=== PATIENT | female | born 1955 | race Caucasian/White ===

== ENCOUNTER 2020-07-05 09:32 | Emergency (ER) | payer OTHER ==
[2020-07-05 09:49] VITALS: BMI 25.3
--- NOTE | 2020-07-05 11:16 | PDOC ---
History of Present Illness - General Chief Complaint: Pain Stated Complaint: ABD PAIN Time Seen by Provider: 07/05/20 10:36 - History of Present Illness Initial Comments: 07/05/20 11:09 64yo F with PMH of HTN and hysterectomy (10/2019 with revision in 02/2020) presents with worsening generalized burning abdominal pain since February. Not relieved by tylenol, ibuprofen, or anti-acids. Relieved by food. Associated with constipation. Reports unintentional 20lb weight loss since October. Las BM yesterday and is passing gas normally. No n/v or diarrhea. No urinary or vaginal symptoms, no fever. PMH/PSH: as above Meds: HTN meds (unsure name) Allergies: none GENERAL/CONSTITUTIONAL: No fever or chills. No weakness. HEAD, EYES, EARS, NOSE AND THROAT: No change in vision. No ear pain or discharge. No sore throat. CARDIOVASCULAR: No chest pain or shortness of breath RESPIRATORY: No cough, wheezing, or hemoptysis. GASTROINTESTINAL: abdominal pain and constipation GENITOURINARY: No dysuria, frequency, or change in urination. MUSCULOSKELETAL: No joint or muscle swelling or pain. No neck or back pain. SKIN: No rash NEUROLOGIC: No headache, vertigo, loss of consciousness, or change in strength/sensation. ENDOCRINE: No increased thirst. No abnormal weight change HEMATOLOGIC/LYMPHATIC: No anemia, easy bleeding, or history of blood clots. ALLERGIC/IMMUNOLOGIC: No hives or skin allergy. PE GENERAL: Awake, alert, and fully oriented, in no acute distress HEAD: No signs of trauma, normocephalic, atraumatic EYES: PERRLA, EOMI, sclera anicteric, conjunctiva clear ENT: Auricles normal inspection, hearing grossly normal, nares patent, oropharynx clear without exudates. Moist mucosa NECK: Normal ROM, supple, no lymphadenopathy, JVD, or masses LUNGS: No distress, speaks full sentences, clear to auscultation bilaterally HEART: Regular rate and rhythm, normal S1 and S2, no murmurs, rubs or gallops, p eripheral pulses normal and equal bilaterally. ABDOMEN: Soft, diffusely tender without guarding or rebound. Negative Mijares's sign. EXTREMITIES : Normal inspection, Normal range of motion, no edema. No clubbing or cyanosis. NEUROLOGICAL: Normal speech, normal gait, no focal sensorimotor deficits SKIN: Warm, Dry, normal turgor, no rashes or lesions noted Vital Signs Temp Pulse Resp BP Pulse Ox 103 H 20 181/112 H 99 07/05/20 09:45 07/05/20 09:45 07/05/20 09:45 07/05/20 09:45 MDM: 64yo F with PMH of HTN and hysterectomy (10/2019 with revision in 02/2020) presents with worsening generalized burning abdominal pain since February. Differential includes post-op complication/inflammation, diverticulitis, pancreatitis. -CBC, CMP, lipase -Pepcid, maalox 07/05/20 16:14 Labs without evidence of acute pathology. Patient reports some improvement with pepcid and maalox. She is soft and mildly tendern on repeat abdominal exam. Low suspicion for emergent pathology, so will not pursue CT A/P in the ED. DC home with tagamet and carafate, as well as PCP/GI f/u. Past History - Medical History Allergies/Adverse Reactions: Allergies Allergy/AdvReac Type Severity Reaction Status Date / Time No Known Drug Allergies Allergy Verified 07/05/20 09:52 Home Medications: Ambulatory Orders Amlodipine Besylate 5 mg PO DAILY 07/05/20 Cimetidine [Tagamet Hb] 200 mg PO HS 14 Days #14 tablet 07/05/20 Losartan 50Mg/Hctz 12.5MG [Hyzaar -] 1 tab PO DAILY 07/05/20 Sucralfate [Carafate -] 1 gm PO BID #28 tablet 07/05/20 COPD: No HTN: Yes Other medical history: spinal stenosis - Surgical History Appendectomy: Yes - Reproductive History Is Patient Now?: No - Psycho-Social/Smoking History Smoking History: Never smoked - Substance Abuse Hx (Audit-C & DAST Scrn) How often the patient has a drink containing alcohol: Never Score: In Men: 4 or > Positive; In Women: 3 or > Positive: 0 Screen Result (Pos requires Nsg. Audit-10AR): Negative In the last yr the pt used illegal drug/Rx for NonMed reason: No Score: Yes response is considered Positive: 0 Screen Result (Positive result requires Nsg. DAST-10): Negative *Physical Exam - Vital Signs Last Vital Signs Temp Pulse Resp BP Pulse Ox 103 H 20 181/112 H 99 07/05/20 09:45 07/05/20 09:45 07/05/20 09:45 07/05/20 09:45 ED Treatment Course - LABORATORY CBC & Chemistry Diagram: 07/05/20 11:45 07/05/20 11:45 Discharge - Discharge Information Problems reviewed: Yes Clinical Impression/Diagnosis: Abdominal pain Qualifiers: Abdominal location: generalized Qualified Code(s): R10.84 - Generalized abdominal pain Condition: Fair Disposition: HOME - Admission No - Additional Discharge Information Prescriptions: Sucralfate [Carafate -] 1 gm PO BID #28 tablet Cimetidine [Tagamet Hb] 200 mg PO HS 14 Days #14 tablet - Follow up/Referral Referrals: Alden Garcia MD [Staff Physician] - - Patient Discharge Instructions Additional Instructions: You were seen in the ER for abdominal pain. We did a physical exam and labs which did not show evidence of an emergent problem. We gave you some anti-acid medication, which helped, but did not completely alleviate your pain. We sent two medications to your pharmacy, which you should take as directed on the label. Please stop taking Motrin (ibuprofen), as this can worsen your abdominal pain. We also gave you a referral to a manager area. Please follow up with your PCP and a manager area within one week. Please return to the ER for new, persistent, or worsening symptoms, fever, chills, vomiting, or any other reason. - Post Discharge Activity
[2020-07-05] MEDS ORDERED: FAMOTIDINE 20 MG/50 ML IVPB 20 MG/50 ML MG IVPB ONE ×2 (11:38→12:07)
[2020-07-05] MEDS ORDERED: MAG HYDROX/AL HYDROX/SIMETH -MYLANTA- ORAL SUSPENSION PO ONE (11:38)
[2020-07-05] MEDS ORDERED: MAG HYDROX/AL HYDROX/SIMETH 30 ML UNIT-DOSE CUP ONE (12:02)
[2020-07-05 12:06] LABS: BASO % 0.3 % (0-2.0); EOS % 2.2 % (0-4.5); HEMATOCRIT 43.3 % (32.4-45.2); HEMOGLOBIN 14.9 GM/dL (10.7-15.3); LYMPH % 18.7 % (8-40); MCHC 34.4 g/dl (32.0-36.0); MEAN CELL VOLUME 92.9 fl (80-96); MEAN PLT VOLUME 8.2 fl (7.5-11.1); MONO % 10.1 % (3.8-10.2); NEUT % 68.7 % (42.8-82.8); PLATELET COUNT 232 K/MM3 (134-434); RBC 4.66 M/mm3 (3.60-5.2); RDW 13.3 % (11.6-15.6); WHITE BLOOD COUNT 4.7 K/mm3 (4.0-10.0)
[2020-07-05 12:40] LABS: ALBUMIN 3.9 g/dl (3.4-5.0); BILIRUBIN,TOTAL 0.4 mg/dL (0.2-1); CALCIUM 8.9 mg/dL (8.5-10.1); CREATININE 0.7 mg/dL (0.55-1.3); POTASSIUM 3.8 mmol/L (3.5-5.1); TOT PROT 7.2 g/dl (6.4-8.2)
--- NOTE | 2020-07-05 14:09 | PDOC ---
Documentation entered by Ana Cristina Tsai SCRIBE, acting as scribe for Mohsen Marc MD. Mohsen Marc MD: This documentation has been prepared by the scribeEulalio Ana, SCRIBE, under my direction and personally reviewed by me in its entirety. I confirm that the documentation accurately reflects all work, treatment, procedures, and medical decision making performed by me. Attending Attestation - Resident Resident Name: AlexaMatti - ED Attending Attestation I have performed the following: I have examined & evaluated the patient, The case was reviewed & discussed with the resident, I agree w/resident's findings & plan, Exceptions are as noted - HPI HPI: 07/05/20 10:39 Patient is a 64 year old female with a significant past medical history of hypertension and hysterectomy (2019), who presents to the ED with worsening abdominal pain and associated constipation x4 months. Patient describes her pain as a "burning sensation" in her epigastrium adn the pain is worse at night, typically worsened with certain foods lke spicy foods, but also improved with things like epigastrium . Patient stated her symptoms are not relieved by any pain medications or anti-acids, they are only slightly relieved when she eats food. Patient also reports 20 pound weight loss over the course of these past 9 months. Patient does occasionally take 600 mg of ibuprofen for pain and has been taking as much as BID the past 4-5 days due to abd discomfort. Social history: Social EtOH Patient denies: fever, nausea, vomiting, diarrhea, melena, BPR any urinary issues, or any other related symptoms. LBM: yesterday - normally passing gas Allergies: NKDA - Physicial Exam PE: 07/05/20 11:39 GENERAL: The patient is awake, alert, and fully oriented, Nontoxic - in no acute distress. HEAD: Normocephalic, atraumatic. EYES: extraocular movements intact, sclera anicteric, conjunctiva clear. ENT: Normal voice, Moist mucous membranes. NECK: Normal range of motion, supple LUNGS: Breath sounds equal, clear to auscultation bilaterally. No wheezes, no rhonchi, no rales. HEART: Regular rate and rhythm, normal S1 and S2 without murmur, rub or gallop. ABDOMEN: Soft, nontender, No guarding, no rebound. No CVA tenderness EXTREMITIES: Normal range of motion, no edema. NEUROLOGICAL: No facial assymetry, Normal speech, PSYCH: Normal mood, normal affect. SKIN: Warm, Dry, normal turgor, - Medical Decision Making 07/05/20 14:07 suspect gastritis lab reviewed, neg lipase/labs pt feeling improved with pecid/maalox abd soft notneneder, do not feel CT is warranted as pt feeing improved will dc with tegamet, carafate and GI fu return precautions wer discussed Heart Score/ECG Review - ECG Impressions Comment:: 07/05/20 14:09 Twelve-lead EKG was performed and reviewed by me. There is normal sinus rhythm with a normal rate. rate of 68 The axis is normal. The intervals are normal. There is normal R wave progression There are no ST or T wave abnormalities. Impression: Normal twelve-lead EKG Discharge - Discharge Information Problems reviewed: Yes Clinical Impression/Diagnosis: Abdominal pain Qualifiers: Abdominal location: generalized Qualified Code(s): R10.84 - Generalized abdominal pain Condition: Fair Disposition: HOME - Additional Discharge Information Prescriptions: Sucralfate [Carafate -] 1 gm PO BID #28 tablet Cimetidine [Tagamet Hb] 200 mg PO HS 14 Days #14 tablet - Follow up/Referral Referrals: Alden Garcia MD [Staff Physician] - - Patient Discharge Instructions Additional Instructions: You were seen in the ER for abdominal pain. We did a physical exam and labs which did not show evidence of an emergent problem. We gave you some anti-acid medication, which helped, but did not completely alleviate your pain. We sent two medications to your pharmacy, which you should take as directed on the label. Please stop taking Motrin (ibuprofen), as this can worsen your abdominal pain. We also gave you a referral to a division director. Please follow up with your PCP and a division director within one week. Please return to the ER for new, persistent, or worsening symptoms, fever, chills, vomiting, or any other reason. - Post Discharge Activity
[2020-07-05 15:24] VITALS: BP 141/91; PULSE 65; TEMP 98.6
--- NOTE | 2020-07-07 11:03 | EKG ---
Test Reason : Blood Pressure : / mmHG Vent. Rate : 068 BPM Atrial Rate : 068 BPM P-R Int : 176 ms QRS Dur : 088 ms QT Int : 378 ms P-R-T Axes : 049 019 020 degrees QTc Int : 401 ms NORMAL SINUS RHYTHM NORMAL ECG NO PREVIOUS ECGS AVAILABLE Confirmed by LD MENDOZA MD ([id number]) on 07/07/2020 11:03:13 AM Referred By: Confirmed By:LD MENDOZA MD
== END 2020-07-05 15:24 | disposition home or self-care (01) ==
LOC: JER 09:32
PROC: 3E033NZ Introduction of Analgesics, Hypnotics, Sedatives into Peripheral Vein, Percutaneous Approach (ICD-10-PCS; principal; 2020-07-05)
DX: R10.84 Generalized abdominal pain (principal)
CPT/HCPCS: 36415; 80053; 83690; 85025; 93005; 93010; 99285-25